=== PATIENT | female | born 1990 | race Caucasian/White ===

== ENCOUNTER 2020-09-14 17:04 | Day surgery (SDC) | payer BC ==
[2020-09-14 17:48] VITALS: BMI 33.6
[2020-09-14] MEDS ORDERED: hydrALAZINE 20 MG/ML VIAL SLOW IVP PRN (17:51)
[2020-09-14 18:16] LABS: Creatinine, Urine 206.28 mg/dL (47-110)
[2020-09-14 18:21] LABS: #Eosinphils 0.1 10x3/uL (0.0-0.5); #Monocytes 0.9 10x3/uL (0.0-1.1); #Neutrophils 7.2 10x3/uL (1.5-8.4); %Basophils 0.3 % (0.0-2.0); %Eosinophils 0.6 % (0.0-6.0); %Lymphocytes 18.6 % (18.0-47.0); %Neutrophils 70.9 % (40.0-75.0); Mean Corpuscular HGB CONC 34.3 g/dL (32.0-36.0); Mean Corpuscular Hemoglobin 30.2 pg (27.0-33.0); Mean Corpuscular Volume 88.2 fl (81.6-98.3); Mean Platelet Volume 12.6 fl (7.4-10.4); Platelet Count 150 10x3/uL (150-450); RBC Distribution Width 12.8 % (11.5-14.5); Red Blood Cell (RBC) Count 3.97 10x6/uL (3.90-5.03); White Blood Cell (WBC) Count 10.1 10x3/uL (3.5-10.5)
[2020-09-14 18:31] LABS: ALT (SGPT) 16 U/L (8-55); AST (SGOT) 20 U/L (5-34); Albumin 3.3 g/dL (3.5-5.0); Alkaline Phosphatase 106 U/L (40-110); Anion Gap 13 mmol/L (10-20); BUN (Urea Nitrogen) 9 mg/dL (7.0-18.7); Bilirubin, Total 0.4 mg/dL (0.2-1.2); Calc. Creatinine Clearance 175 mL/min (70-130); Calcium 8.5 mg/dL (7.8-10.44); Carbon Dioxide 20 mmol/L (22-29); Chloride 107 mmol/L (98-107); Globulin 3.2 g/dL (2.4-3.5); Glucose 76 mg/dL (70-105); Potassium 3.7 mmol/L (3.5-5.1); Protein, Total 6.5 g/dL (6.0-8.3); Sodium 136 mmol/L (136-145)
== END 2020-09-14 18:50 | disposition home health service (06) ==
LOC: CSHLD/OP 17:04
PROVIDERS: ATTEND Obstetrics & Gynecology
DX: O99.891 Other specified diseases and conditions complicating pregnancy (principal); R03.0 Elevated blood-pressure reading, without diagnosis of hypertension; Z3A.37 37 weeks gestation of pregnancy
CPT/HCPCS: 36415; 80053; 82570; 84156; 85025; 99283

== ENCOUNTER 2020-09-22 07:28 | Outpatient (CLI) | payer BC ==
[2020-09-22 14:23] LABS: SARS-CoV-2 PCR by NAA Not Detected (NotDetected)
== END 2020-09-22 07:29 | disposition home or self-care (01) ==
LOC: CSHLAB 07:28
PROVIDERS: ATTEND Obstetrics & Gynecology
DX: Z20.822 Contact with and (suspected) exposure to COVID-19 (principal)
CPT/HCPCS: 87635; U0003; U0005

== ENCOUNTER 2020-09-25 05:21 | Inpatient (IN) | payer BC ==
[2020-09-25] MEDS ORDERED: CEFAZOLIN 2 GM in Premix Bag 1 BAG IVPB SCH (06:15)
[2020-09-25] MEDS ORDERED: Lactated Ringer's 1,000 ML IV SCH (06:15)
[2020-09-25] MEDS ORDERED: Famotidine/PF 20 mg/2ml Vial SLOW IVP PRN (06:15)
[2020-09-25] MEDS ORDERED: hydrALAZINE 20 MG/ML VIAL SLOW IVP PRN ×2 (06:15→10:58)
[2020-09-25] MEDS ORDERED: Promethazine HCl 25 MG/ML VIAL IM PRN ×2 (06:15→07:21)
[2020-09-25] MEDS ORDERED: Ondansetron PF 4 MG/2 ML Vial IVP PRN ×3 (06:15→10:58)
[2020-09-25] MEDS ORDERED: Bicitra 30 ML UDCUP PO PRN (06:15)
[2020-09-25 06:16] VITALS: BMI 34.5
[2020-09-25 06:42] LABS: Hemoglobin 12.5 g/dL (12.0-15.5); Mean Corpuscular HGB CONC 33.7 g/dL (32.0-36.0); Mean Corpuscular Hemoglobin 30.5 pg (27.0-33.0); Mean Corpuscular Volume 90.5 fl (81.6-98.3); Mean Platelet Volume 13.3 fl (7.4-10.4); Platelet Count 177 10x3/uL (150-450); RBC Distribution Width 13.3 % (11.5-14.5); White Blood Cell (WBC) Count 12.4 10x3/uL (3.5-10.5)
[2020-09-25] MEDS ORDERED: Morphine PF 10 MG/10 ML VIAL ONE (06:59)
[2020-09-25] MEDS ORDERED: Ketorolac Tromethamine 30 MG/ML VIAL ONE (06:59)
[2020-09-25] MEDS ORDERED: Phenylephrine 10 MG/ML VIAL ONE (07:00)
[2020-09-25] MEDS ORDERED: Oxytocin 10 UNITS/ML VIAL ONE (07:00)
[2020-09-25] MEDS ORDERED: Dexamethasone 4 mg/ml Vial ONE (07:00)
[2020-09-25] MEDS ORDERED: Ondansetron PF 4 MG/2 ML Vial ONE (07:00)
[2020-09-25] MEDS ORDERED: Meperidine HCl/PF 25 MG/ML VIAL SLOW IVP PRN (07:21)
[2020-09-25] MEDS ORDERED: Ketorolac Tromethamine 30 MG/ML VIAL IVP PRN (07:21)
[2020-09-25] MEDS ORDERED: Naloxone HCl 0.4 mg/ml Vial IVP PRN ×2 (07:21)
[2020-09-25] MEDS ORDERED: Promethazine HCl 25 MG SUPP PR PRN (07:21)
[2020-09-25] MEDS ORDERED: HYDROmorphone 2 MG/ML VIAL SLOW IVP PRN (07:21)
[2020-09-25] MEDS ORDERED: diphenhydrAMINE 50 MG/ML VIAL IVP PRN (07:21)
[2020-09-25] MEDS ORDERED: Eucerin (Mineral Oil/Petrolatum,White) 30 gm Jar TOP PRN (07:21)
[2020-09-25] MEDS ORDERED: Ondansetron HCl/PF 4 MG/2 ML Vial IVP PRN (07:21)
[2020-09-25] MEDS ORDERED: Naloxone HCl 0.4 mg/ml Vial IV PRN (07:21)
[2020-09-25] MEDS ORDERED: L&D-Morphine 4 MG/ML VIAL SLOW IVP PRN (07:21)
[2020-09-25] MEDS ORDERED: Communication Order-Pharmacy FS SCH (07:30)
[2020-09-25] MEDS ORDERED: Ketorolac Tromethamine 30 MG/ML VIAL IVP SCH (07:30)
[2020-09-25 09:21] LABS: Hep B Surf Ag Non-Reactive S/CO (NonReactive); Syphilis Antibody Nonreactive (Nonreactive); Syphilis Antibody Index 0.05 S/CO (<1.00 Non-Reactive)
[2020-09-25 09:35] LABS: HBSAg Index 0.15 S/CO (0-0.99)
[2020-09-25] MEDS ORDERED: Meperidine HCl/PF 25 MG/ML VIAL IM PRN (10:58)
[2020-09-25] MEDS ORDERED: Lanolin Ointment 7 GM TUBE TOP PRN (10:58)
[2020-09-25] MEDS ORDERED: Bisacodyl 10 MG SUPP PR PRN (10:58)
[2020-09-25] MEDS ORDERED: Adacel (T-DAP) 0.5 ML SYRINGE IM ONE (10:58)
[2020-09-25] MEDS ORDERED: diphenhydrAMINE 25 MG CAP PO PRN (10:58)
[2020-09-25] MEDS ORDERED: Simethicone Chewable 80 MG TAB PO PRN (10:58)
[2020-09-25] MEDS ORDERED: HYDROcodone/Acetaminophen 5/325 mg Tablet PO PRN (10:58)
[2020-09-25] MEDS: Ferrous Sulfate 325 MG TAB PO SCH (13:30)
[2020-09-25] MEDS: Prenatal Vitamin 1 TAB PO SCH (13:30)
[2020-09-25] MEDS: Docusate Calcium (SURFAK) 240 MG CAP PO SCH ×2 (13:30→21:06)
[2020-09-25] MEDS: Ibuprofen 800 MG TAB PO SCH ×2 (15:00→21:06)
[2020-09-26] MEDS: Ferrous Sulfate 325 MG TAB PO SCH ×3 (01:56→20:32)
[2020-09-26] MEDS: Ibuprofen 800 MG TAB PO SCH ×3 (05:15→21:40)
[2020-09-26 06:28] LABS: Hemoglobin 8.2 g/dL (12.0-15.5); Mean Corpuscular HGB CONC 33.1 g/dL (32.0-36.0); Mean Corpuscular Hemoglobin 30.5 pg (27.0-33.0); Mean Corpuscular Volume 92.2 fl (81.6-98.3); Mean Platelet Volume 12.5 fl (7.4-10.4); Platelet Count 121 10x3/uL (150-450); RBC Distribution Width 13.6 % (11.5-14.5); Red Blood Cell (RBC) Count 2.69 10x6/uL (3.90-5.03); White Blood Cell (WBC) Count 12.1 10x3/uL (3.5-10.5)
[2020-09-26] MEDS: Prenatal Vitamin 1 TAB PO SCH (08:06)
[2020-09-26] MEDS: Docusate Calcium (SURFAK) 240 MG CAP PO SCH ×2 (08:06→20:22)
[2020-09-26] MEDS: HYDROcodone/Acetaminophen 5/325 mg Tablet PO PRN ×3 (08:06→20:22)
[2020-09-27] MEDS: Ibuprofen 800 MG TAB PO SCH (05:46)
[2020-09-27 08:09] VITALS: BP 119/81; TEMP 98.5
[2020-09-27] MEDS: Prenatal Vitamin 1 TAB PO SCH (08:57)
[2020-09-27] MEDS: Ferrous Sulfate 325 MG TAB PO SCH (08:57)
[2020-09-27] MEDS: Docusate Calcium (SURFAK) 240 MG CAP PO SCH (08:57)
[2020-09-27] MEDS: HYDROcodone/Acetaminophen 5/325 mg Tablet PO PRN (08:59)
== END 2020-09-27 13:10 | disposition home or self-care (01) | DRG 787 ==
LOC: CSHLD 05:21 → EDSTATUS 07:30 → CSHPED 10:00
PROVIDERS: ADMIT Obstetrics & Gynecology; ATTEND Obstetrics & Gynecology
PROC: 10D00Z1 Extraction of Products of Conception, Low, Open Approach (ICD-10-PCS; principal; 2020-09-25)
PROC: 4A0HXCZ Measurement of Products of Conception, Cardiac Rate, External Approach (ICD-10-PCS; 2020-09-25)
DX: O34.211 Maternal care for low transverse scar from previous cesarean delivery (principal); D62 Acute posthemorrhagic anemia; Z3A.39 39 weeks gestation of pregnancy; Z37.0 Single live birth; O99.892 Other specified diseases and conditions complicating childbirth; N73.6 Female pelvic peritoneal adhesions (postinfective); O90.81 Anemia of the puerperium
CPT/HCPCS: 36415; 51702; 82805; 85027; 86780; 86850; 86900; 86901; 87340; 87635; J0690; J1100; J1885; J2274; J2370; J2405; U0003; U0005